=== PATIENT | male | born 1975 | race Caucasian/White ===

== ENCOUNTER → 2017-10-05 | Emergency (ER) | payer OTHER ==
[~2017-10-05] VITALS: Ht 170.2 cm; Wt 91.6 kg
== END | disposition home or self-care (01) ==
LOC: ER 11:08
DX: S60.212A Contusion of left wrist, initial encounter (principal); W10.8XXA Fall (on) (from) other stairs and steps, initial encounter; Y93.01 Activity, walking, marching and hiking; Y92.098 Other place in other non-institutional residence as the place of occurrence of the external cause; Y99.8 Other external cause status

== ENCOUNTER 2021-07-20 11:00 | Outpatient (CLI) | payer OTHER | END 2021-07-20 12:00 | disposition home or self-care (01) | LOC: PPH VACUNA 11:00 | DX: Z23 Encounter for immunization (principal) ==